=== PATIENT | female | born 1955 | race Caucasian/White ===

== ENCOUNTER 2020-03-25 09:31 | Day surgery (SDC) | payer MEDICAID, SELFPAY ==
[2020-03-18 09:05] VITALS: BMI 29.0
--- NOTE | 2020-03-24 09:01 | HO.ANESPROP2 ---
Documented by User: Cheryl Gould 03/24/20 09:01 HPI - Anesthesia Eval Consult details Narrative: 64yo F for Colonoscopy [facility] Past Medical History Medical History Arthritis Back pain Bulging lumbar disc Diabetes GERD (gastroesophageal reflux disease) Hiatal hernia Hypertension Rotator cuff tear Surgical History Surgical History History of partial hysterectomy Hx of colonoscopy Social History Social History Smoking Status: Never smoker Use of substances other than those prescribed or required for medical reasons: No Advance Directives: No Advance Directives Information Provided: Yes Meds Allergies Allergy/AdvReac Type Severity Reaction Status Date / Time Penicillins [PENICILLINS] Allergy Intermediate SWELLING Verified 03/18/20 09:05 Home Medications Medication Instructions Recorded Confirmed Last Taken Type aspirin [Aspirin Low Dose] 81 mg PO DAILY 03/18/20 03/18/20 Unknown History atenolol 100 mg PO DAILY 03/18/20 03/18/20 03/25/20 History atorvastatin 10 mg PO BEDTIME 03/18/20 03/18/20 Unknown History metformin 1,000 mg PO BID 03/18/20 03/18/20 Unknown History omeprazole [Prilosec] 20 mg PO DAILY 03/18/20 03/18/20 Unknown History valsartan 320 mg PO DAILY 03/18/20 03/18/20 Unknown History Exam Exam Date and Time: March 24, 2020 09 Height,Weight and Vital Signs: Height 5 ft 5.5 in Weight 80.286 kg Assessment and Plan Assessment Anesthesia Assessment: Chart Reviewed Documented by User: Rosanna Spring 03/25/20 10:55 [facility] Past Medical History Medical History Arthritis Back pain Bulging lumbar disc Diabetes GERD (gastroesophageal reflux disease) Hiatal hernia Hypertension Rotator cuff tear Surgical History Surgical History History of partial hysterectomy Hx of colonoscopy Social History Social History Smoking Status: Never smoker Use of substances other than those prescribed or required for medical reasons: No Advance Directives: No Advance Directives Information Provided: Yes Meds Allergies Allergy/AdvReac Type Severity Reaction Status Date / Time Penicillins [PENICILLINS] Allergy Intermediate SWELLING Verified 03/18/20 09:05 Home Medications Medication Instructions Recorded Confirmed Last Taken Type aspirin [Aspirin Low Dose] 81 mg PO DAILY 03/18/20 03/18/20 Unknown History atenolol 100 mg PO DAILY 03/18/20 03/18/20 03/25/20 History atorvastatin 10 mg PO BEDTIME 03/18/20 03/18/20 Unknown History metformin 1,000 mg PO BID 03/18/20 03/18/20 Unknown History omeprazole [Prilosec] 20 mg PO DAILY 03/18/20 03/18/20 Unknown History valsartan 320 mg PO DAILY 03/18/20 03/18/20 Unknown History Exam Airway Mallampati Class: II TM Dist: >3cm Neck ROM: Full Loose/Missing/Broken Teeth: Yes Heart: RRR Lungs: CTA Assessment and Plan Assessment Anesthesia Assessment: Anesthesia Plan Discussed and Chart Reviewed Final Anesthetic Review NPO: Yes ASA Class: II Final Preanesthetic Review: Meds/Allgs Chart Reviewed, Consent Obtained/Reviewed and Anes Risks/Benef Reviewed Patient Risk: Intermediate Procedure Risk: Low Anesthetic Plan Anesthetic Plan: MAC: Disposition: Standard PACU
[2020-03-25] VITALS (8 sets, daily range): BP systolic 130–213; BP diastolic 61–82; PULSE 74–79; RESP 14–18; TEMP 36.1–36.6; O2SAT 98–100
[2020-03-25 10:33] LABS: Glucose, Whole Blood 153 mg/dL (60-115)
[2020-03-25] MEDS: Lactated Ringers 1,000 ML 100 ML IVCONT (10:44)
--- NOTE | 2020-03-25 12:08 | PM.OP ---
Brief Operative Note Date of Service: 03/25/20 Pre-op diagnosis: Screening Post-op diagnosis: other (Diverticulosis) Procedure: Colonoscopy to cecum and TI Surgeon: Joe Powell Anesthesia: MAC Estimated blood loss (mL): 0 Pathology: none sent Condition: stable Disposition: PACU
--- NOTE | 2020-03-25 13:08 | OP_ITS ---
SURGEON: Joe Powell MD INDICATIONS: The patient presents for evaluation of colorectal cancer screening. Full consent was obtained from her for this, including risks of bleeding and perforation. PREOPERATIVE DIAGNOSIS: Colorectal cancer screening. POSTOPERATIVE DIAGNOSIS: Colorectal cancer screening, sigmoid diverticulosis, and internal hemorrhoids. PROCEDURE PERFORMED: Colonoscopy to the cecum and terminal ileum. ESTIMATED BLOOD LOSS: COMPLICATIONS: ANESTHESIA: Medication used, monitored anesthesia care. ASSISTANTS: SPECIMENS: DESCRIPTION OF PROCEDURE: The patient was placed in the left lateral decubitus position. A digital rectal exam revealed no abnormalities. An Olympus video pediatric colonoscope was entered into the rectum and advanced easily to the cecum. Once in the cecum, I did visualize normal-appearing cecal pouch with appendiceal orifice and a normal-appearing ileocecal valve. The terminal ileum was cannulated and appeared normal. The scope was withdrawn back in the colon. The entire cecum and ileocecal valve appeared normal. The scope was slowly withdrawn assessing all mucosal surfaces carefully. Preparation was excellent. I did not visualize any sign of polyps, colitis, nor angiodysplasia. There was a mild amount of sigmoid diverticulosis. In the rectum, scope was retroflexed visualizing small internal hemorrhoids, but no other pathology. The rectal mucosa appeared normal. The scope was straightened and withdrawn from the patient. She tolerated the procedure well and was returned to the recovery area in stable condition. IMPRESSION: 1. Sigmoid diverticulosis. 2. Internal hemorrhoids. PLAN: Given the patient's negative exam, I would recommend a followup colonoscopy in 10 years for further screening. Her only family history is that of her mother having had colon cancer in her late 80s. Based on that and previously negative colonoscopies as well, I do not think her colonoscopy needs to be done any sooner than 10 years. She will otherwise see me on a p.r.n. basis. MD SAUL Lara/DARLENE / [id number]
== END 2020-03-25 11:00 | disposition home or self-care (01) ==
PROVIDERS: PCP Internal Medicine; Visit Provider Internal Medicine
PROC: 0DJD8ZZ Inspection of Lower Intestinal Tract, Via Natural or Artificial Opening Endoscopic (ICD-10-PCS; CPT 45378; principal; 2020-03-25 10:50)
DX: Z12.11 Encounter for screening for malignant neoplasm of colon (principal); K57.30 Diverticulosis of large intestine without perforation or abscess without bleeding; K64.8 Other hemorrhoids; E11.9 Type 2 diabetes mellitus without complications; I10 Essential (primary) hypertension; Z79.82 Long term (current) use of aspirin; Z79.84 Long term (current) use of oral hypoglycemic drugs; Z88.0 Allergy status to penicillin
CPT/HCPCS: 45378; 82947; J2370